=== PATIENT | female | born 1970 | race American Indian/Alaskan Native ===

== ENCOUNTER 2017-11-10 21:18 | Emergency (ER) | payer OTHER ==
[2017-11-10 22:24] VITALS: BP 129/77
--- NOTE | 2017-11-10 22:54 | Cat Scan Report ---
FINAL REPORT PROCEDURE: CT HEAD/BRAIN WO CON TECHNIQUE: Computerized tomography of the head was performed without contrast material. HISTORY: pain COMPARISON: No prior studies are available for comparison. FINDINGS: There is no CT evidence of intracranial mass, hemorrhage, acute territorial infarction, or hydrocephalus. There is a subcentimeter low-density lesion in the right basal ganglia, which may be a chronic lacunar infarct. The intracranial arteries are symmetric in density. Calvarium is intact. Visualized paranasal sinuses and mastoids are aerated. IMPRESSION: No CT evidence of acute intracranial abnormality
--- NOTE | 2017-11-10 22:58 | Cat Scan Report ---
FINAL REPORT PROCEDURE: CT CERVICAL SPINE WO CON TECHNIQUE: Computerized tomography of the cervical spine was performed from the skull base to T1 without contrast material. HISTORY: pain COMPARISON: No prior studies are available for comparison. FINDINGS: The vertebral body heights and alignment are maintained. There are degenerative disc changes at C5-6 and C6-7, with disc space narrowing and anterior osteophyte formation. No acute fracture or subluxation is identified. IMPRESSION: No acute abnormality is identified.
[2017-11-10 23:12] LABS: Bilirubin,Urine NEG (Negative); Blood,Urine NEG (Negative); Color,Urine Red (Yellow); Protein,Urine <15 mg/dL mg/dL (Negative); RBC,Urine < 1.0 /HPF (0.0-6.0); Urobilinogen,Urine < 2.0 mg/dL (<2.0); WBC,Urine < 1.0 /HPF (0.0-6.0)
[2017-11-10 23:15] LABS: HCG Qualitative,Urine Negative (Negative)
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
[2017-11-11] MEDS ORDERED: NORCO 5/325 PO ONE (01:11)
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
== END 2017-11-11 01:50 | disposition home or self-care (01) ==
LOC: ED 21:18
DX: S13.4XXA Sprain of ligaments of cervical spine, initial encounter (principal); S60.221A Contusion of right hand, initial encounter; R51 Headache; F41.9 Anxiety disorder, unspecified; G62.9 Polyneuropathy, unspecified; Z88.8 Allergy status to other drugs, medicaments and biological substances; V89.2XXA Person injured in unspecified motor-vehicle accident, traffic, initial encounter; Y93.89 Activity, other specified; Y99.8 Other external cause status; Y92.410 Unspecified street and highway as the place of occurrence of the external cause
CPT/HCPCS: 70450; 72125; 81001; 81025